=== PATIENT | male | born 1965 | race Caucasian/White ===

== ENCOUNTER 2018-07-25 10:28 | Emergency (ER) | payer OTHER ==
--- NOTE | 2018-07-25 10:49 | EDPHY ---
H & P Time Seen by Provider: 07/25/18 10:38 HPI/ROS: CHIEF COMPLAINT: Head laceration HISTORY OF PRESENT ILLNESS: Patient is a 53-year-old male who presents emergency department after lacerating his head. The patient was chasing his dog when he fell forward striking his head into the corner of the house. He did not lose consciousness. Bleeding is controlled. He has no focal neurologic deficits. No visual change. No neck or back pain. Patient sustained no other injury. He is not on blood thinners. The patient complains of no headache. He has mild nausea only when he thinks about the blood from his laceration. REVIEW OF SYSTEMS: Negative Past medical history: Negative Smoking Status: Never smoked Physical Exam: Vitals noted General Appearance: Alert and no distress. Well-appearing. Head: Pupils equal. Patient has an irregular stellate type laceration on the crown of his head. It is 2.5 cm long. There is no step-off or deformity. No significant tenderness palpation. Bleeding is controlled. No visible foreign body. No galea involvement. C-spine: No tenderness to palpation. Nexus negative. Respiratory: No respiratory distress. Cardiac: regular rate and rhythm. Extremities: Full range of motion, normal appearing. Skin: Patient has is shingles like lesion on his left lateral abdomen. Neuro: Alert. Normal mood and affect. GCS 15. Constitutional: Initial Vital Signs Temperature (C) 36.5 C 07/25/18 10:37 Heart Rate 55 L 07/25/18 10:37 Respiratory Rate 18 07/25/18 10:37 Blood Pressure 85/61 L 07/25/18 10:37 O2 Sat (%) 99 07/25/18 10:37 O2 Delivery Mode Room Air Allergies/Adverse Reactions: No Known Allergies Allergy (Verified 07/25/18 10:43) Home Medications: Medication Instructions Recorded Mbx Soln;Maalox/Diphen/Lido 5 - 10 ml PO PRN PRN #120 ml 09/26/10 [Maalox/Diphenhydramine/Lido] None 09/26/10 Penicillin V Potassium [Pen Vk] 500 mg PO BID #20 tab 09/26/10 Valacyclovir HCl [Valtrex] 1,000 mg PO TID #21 tab 07/25/18 Medical Decision Making Procedures: Procedure: Laceration repair. Verbal consent was obtained from the patient. The scalp laceration was anesthetized in the usual fashion. It was 2.5 cm long. The wound was irrigated , draped and explored to its base with a gloved finger. There were no deep structures involved.The wound was repaired with 5 0 nylon. The wound repair was simple. The procedure was performed by myself. ED Course/Re-evaluation: In the emergency department I discussed possible etiologies with the patient. I answered all his questions. This time I do not feel he needs head CT imaging. I discussed the limitations of physical exam with the patient. He agrees with this plan. Patient consented to have his wound cleaned, repaired and dressed. Patient requested that look at his abdominal rash. Please refer to the physical exam. He has shingles like rash. He states that it came on yesterday. He has mild discomfort. Patient was given wound care instructions. He is given closed-head injury precautions. He is given warnings prior to leaving. Differential Diagnosis: My differential includes but is not limited to laceration, foreign body, avulsion, hematoma, subarachnoid hemorrhage, subdural hematoma, epidural hematoma, skull fracture, spinal injury Departure - Departure Disposition: Home, Routine, Self-Care Clinical Impression: Scalp laceration Qualifiers: Encounter type: initial encounter Qualified Code(s): S01.01XA - Laceration without foreign body of scalp, initial encounter Shingles Qualifiers: Herpes zoster complications: without complications Qualified Code(s): B02.9 - Zoster without complications Condition: Good Instructions: Care For Your Stitches (ED), Shingles (ED) Additional Instructions: You should have your sutures removed in 7 days. You can return to the emergency department have these sutures removed. They are not absorbable. Apply bacitracin twice daily Referrals: Danielle Jewell [Primary Care Provider] - 5-7 days, call for appt. Prescriptions: Valacyclovir HCl [Valtrex] 1,000 mg PO TID #21 tab
[2018-07-25 11:30] VITALS: BP 114/78
== END 2018-07-25 11:40 | disposition home or self-care (01) ==
LOC: CED 10:28
PROC: 0HQ0XZZ Repair Scalp Skin, External Approach (ICD-10-PCS; principal; 2018-07-25)
DX: S01.01XA Laceration without foreign body of scalp, initial encounter (principal); B02.9 Zoster without complications; W01.198A Fall on same level from slipping, tripping and stumbling with subsequent striking against other object, initial encounter; Y93.02 Activity, running; Y92.9 Unspecified place or not applicable; Y99.9 Unspecified external cause status